=== PATIENT | male | born 1970 | race Caucasian/White ===

== ENCOUNTER 2017-03-14 05:02 | Emergency (ER) | payer MEDICAID, OTHER ==
[~2017-03-14] VITALS: Ht 177.8 cm; Wt 90.1 kg
[~2017-03-14 05:02] MED LIST: LISI-466 PO; MORP15TA3 PO; TRAM-28 PO
[2017-03-14] MEDS ORDERED: ONDANSETRON 2MG/ML, 2ML ONE (05:27)
[2017-03-14] MEDS ORDERED: HYDROmorphone 1 MG/ML, 1ML ONE ×2 (05:27→06:20)
[2017-03-14] MEDS: HYDROmorphone 1 MG/ML, 1ML IVPush PRN ×2 (05:43→06:23)
[2017-03-14] MEDS ORDERED: ONDANSETRON 2MG/ML, 2ML IVPush ONE (06:00)
[2017-03-14 06:06] LABS: BLOOD UREA NITROGEN 11 mg/dL (7-18)
[2017-03-14 06:10] LABS: ASPARTATE AMINO TRANSFERASE 22 U/L (15-37)
[2017-03-14] MEDS ORDERED: OMNIPAQUE 350 MG/ML, 100ML BOTTLE ONE (06:45)
[2017-03-14 08:14] VITALS: BP 133/90
== END 2017-03-14 09:00 | disposition home or self-care (01) ==
LOC: ED 08:25
DX: R10.11 Right upper quadrant pain (principal); I10 Essential (primary) hypertension; R00.0 Tachycardia, unspecified; Z90.49 Acquired absence of other specified parts of digestive tract; Z87.891 Personal history of nicotine dependence
CPT/HCPCS: 36415; 74177; 80053; 81003; 83690; 85025; 93005; 96374; 96375; 96376; 99285; J1170; J2405; Q9967

== ENCOUNTER 2020-06-20 17:56 | Emergency (ER) | payer OTHER ==
[~2020-06-20 17:56] MED LIST changes: +MORP-29 PO; -MORP15TA3 PO; -TRAM-28 PO; +TRAM-47 PO
--- NOTE | 2020-06-20 18:45 | NUR ---
not in lobby
--- NOTE | 2020-06-20 19:08 | NUR ---
not in lobby
--- NOTE | 2020-06-20 19:35 | NUR ---
not in lobby
== END 2020-06-20 19:37 | disposition left against medical advice (07) ==
LOC: ED 19:00
DX: R22.41 Localized swelling, mass and lump, right lower limb (principal); Z53.21 Procedure and treatment not carried out due to patient leaving prior to being seen by health care provider

== ENCOUNTER 2020-06-22 04:47 | Emergency (ER) | payer OTHER ==
--- NOTE | 2020-06-22 05:06 | NUR ---
PATIENT FOUND LUMP ON SIDE OF CALF A FEW WEEKS AGO. PT NOTICED BRUISING ON ANKLE AREA AND YESTERDAY PCP STATED TO COME IN TO GET CHECKED OUT. DENIES PAIN, STATES TAKING IBUPROFEN AT HOME, RESTING COMFORTABLY ON GURNEY. PUT ON MONITORS, ERP AT BEDSIDE
--- NOTE | 2020-06-22 05:41 | NUR ---
ULTRASOUND AT BEDSIDE
[2020-06-22 06:12] VITALS: BP 141/85
--- NOTE | 2020-06-22 07:10 | NUR ---
Patient/Caregiver given discharge instructions and they have confirmed that they understand the instructions. Patient ambulatory with steady gait.
== END 2020-06-22 07:14 | disposition home or self-care (01) ==
LOC: ED 06:36
DX: S80.11XA Contusion of right lower leg, initial encounter (principal); I10 Essential (primary) hypertension; X58.XXXA Exposure to other specified factors, initial encounter; Y93.89 Activity, other specified; Y92.89 Other specified places as the place of occurrence of the external cause; Y99.8 Other external cause status
CPT/HCPCS: 99284